=== PATIENT | male | born 1975 | race Caucasian/White ===

== ENCOUNTER 2025-04-08 14:45 | Outpatient (AMB) | payer OTHER, SELFPAY ==
--- NOTE | 2025-04-08 14:50 | A.OFFPC_ITS ---
Vital Signs 04/08/25 14:54 Height 5 ft 6.73 in Weight 219 lb 8 oz BMI 34.7 BP 116/74 Blood Pressure Location Lt brachial Position Sitting Respiration 14 Pulse 85 Pulse Source Pulse Oximeter Temp 98.2 F Temp Source Oral Pulse Oximetry (%) 97 Oxygen Delivery Method Room Air Intake Visit Reasons: CPE? 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 JOVITA on CPAP presenting to establish care/CPE. Transfer from [facility]-records not yet received On toprol 25mg daily, plavix, lipitor, ASA cardiac cath 09/2024-nstemi with pci. Follows with [facility] Dr Beck. 01/07 echo with LVEF 45-50%. Denies chest pain. JOVITA-not following with sleep medicine. compliant with CPAP Allergies-on asad and flonase Colon cancer screening- ROS CONSTITUTIONAL: Denies weight loss, fever and chills. HEENT: Denies changes in vision and hearing. RESPIRATORY: Denies SOB and cough. CV: Denies palpitations and CP GI: Denies abdominal pain, nausea, vomiting and diarrhea. : Denies dysuria and urinary frequency. MSK: Denies new myalgia and joint pain. SKIN: Denies rash and pruritus. NEUROLOGICAL: Denies headache PSYCHIATRIC: Denies recent changes in mood. PHYSICAL EXAM: GENERAL: Alert and oriented x 3. NAD EYES: EOMI. Anicteric. HENT: Moist mucous membranes. No scleral icterus. No cervical lymphadenopathy. LUNGS: Clear to auscultation bilaterally. CARDIOVASCULAR: Regular rate and rhythm. No murmur. No JVD. ABDOMEN: Soft, non-tender +bs EXTREMITIES: No edema. Non-tender. SKIN: No rashes or lesions. Warm. NEUROLOGIC: No focal neurological deficits. CN II-XII grossly intact PSYCHIATRIC: Cooperative. Appropriate mood and affect [facility] Surgical History H/O cardiac catheterization Social History Housing: House Patient Tobacco Use Status: Former Tobacco user Years Smoked: 4 e-Cigarette/Vaping Use: Former Use (quit 10/14/2024) Second Hand Smoke Exposure: No service: No Current occupational status: employed Current occupation: [employer] Current occupational exposures/hazards: No Cognitive needs: No Hearing needs: No Vision needs: No Questionnaire PHQ-9 Over the last 2 weeks, how often have you been bothered by any of the following problems? 1. Little interest or pleasure in doing things: not at all 2. Feeling down, depressed, or hopeless: not at all 3. Trouble falling or staying asleep, or sleeping too much: not at all 4. Feeling tired or having little energy: several days 5. Poor appetite or overeating: several days 6. Feeling bad about yourself - or that you are a failure or have let yourself or your family down: not at all 7. Trouble concentrating on things, such as reading the newspaper or watching television: not at all 8. Moving or speaking so slowly that other people could have noticed. Or the opposite - being so fidgety or restless that you have been moving around a lot more than usual: not at all 9. Thoughts that you would be better off or of hurting yourself in some way: not at all Total score: 2 Depression Screening Interpretation: Negative Depression Screening Done: Yes 81814 - PHQ-9 Billing: Yes Source: Developed by Drs. Mg Grady, Kavitha Huertas, Abebe Cervnates and colleagues, with an educational arias from [employer]. Thrive Questionnaire I am a: Patient What is your living situation today?: I have a steady place to live Within the past 12 months, did the food you bought not last and you didn't have the money to get more?: Never true Within the past 12 months, did you worry whether your food would run out before you got money to buy more?: Never true Do you have trouble paying for medicines?: No Do you have trouble getting transportation to medical appointments?: No Do you have trouble paying your heating and electricity bill?: No Do you have trouble taking care of your child, family member or friend?: No Do you have trouble with day-to-day activities such as bathing, preparing meals, shopping, managing finances, etc.?: No Are you currently unemployed and looking for a job?: No Are you interested in more education?: No Please select the resources that you would like help with: None Currently or been in a relationship where the following occur: No concerns reported THRIVE Score: 0 AUDIT C Alcohol Use Questionnaire (AUDIT-C) 1. How often do you have a drink containing alcohol?: Monthly or less 2. How many drinks containing alcohol do you have on a typical day when you are drinking?: 3 or 4 3. How often do you have six or more drinks on one occasion?: Less than monthly Total Score: 3 ANEESH-7 AMB Questionnaire ANEESH-7 Feeling nervous, anxious, or on edge: 0 = Not at all Not being able to stop or control worryin = Not at all Worrying too much about different things: 0 = Not at all Trouble relaxin = Not at all Being so restless that it is hard to sit still: 0 = Not at all Becoming easily annoyed or irritable: 0 = Not at all Feeling afraid as if something awful might happen: 0 = Not at all Total ANEESH-7 score (0-4 normal; 5-9 mild; 10-14 moderate; 15-21 severe): 0 Source: Developed by Drs. Mg Grady, Kavitha Huertas, Abebe Cervantes and colleagues, with an educational arias from [employer]. Physical exam (Primary Care) Vital Signs: Last Vital Signs Temp 98.2 F 04/08/25 14:54 Pulse 85 04/08/25 14:54 Resp 14 04/08/25 14:54 BP 116/74 04/08/25 14:54 Pulse Ox 97 04/08/25 14:54 Oxygen Delivery Method Room Air 04/08/25 14:54 BMI result Body Mass Index 34.7 Tobacco/Smoking Status: Tobacco use Status Tobacco use date assessed 04/08/25 04/08/25 15:00 Patient Tobacco Use Status Former Tobacco user 04/08/25 15:00 e-Cigarette/Vaping Use Former Use (quit 10/14/2024) 04/08/25 15:00 PHQ-9: PHQ-9 Score PHQ-9: Total score 2 04/08/25 15:00 Depression Screening Interpretation: Negative Currently or been in a relationship where the following occur: No concerns reported Coding Level of Care Code New Pt Prev Care 40-64y(12131) Diagnoses Physical exam Z00.00 Obesity (BMI 30.0-34.9) E66.811 JOVITA (obstructive sleep apnea) G47.33 Coronary artery disease involving [place] coronary artery of [place] heart without angina pectoris I25.10 Coronary Disease-Associated Artery/Lesion type: [place] artery [place] vs. transplanted heart: [place] heart Associated angina: without angina Additional Codes PHQ-9 - 38154 - PHQ-9 Billing: Yes ([id number]) Assessment & Plan Assessment & Plan (1) Physical exam: Code(s): Z00.00 - Encounter for general adult medical examination without abnormal findings (2) Obesity (BMI 30.0-34.9): Code(s): E66.811 - Obesity, class 1 Category: Medical (3) JOVITA (obstructive sleep apnea): Code(s): G47.33 - Obstructive sleep apnea (adult) (pediatric) Category: Medical (4) CAD (coronary artery disease): Code(s): I25.10 - Atherosclerotic heart disease of [place] coronary artery without angina pectoris Category: Medical Qualifiers: Coronary Disease-Associated Artery/Lesion type: [place] artery [place] vs. transplanted heart: [place] heart Associated angina: without angina Qualified Code(s): I25.10 - Atherosclerotic heart disease of [place] coronary artery without angina pectoris Plan 50 year old male to establish care Past medical, surgical, social reviewed Preventive measures for age discussed CAD-continue cardiology follow up Obesity/JOVITA/CAD-should be on GLP which is ordered. Check labs Orders: Orders Comprehensive Met. Panel 04/08/25 E78.5 - Hyperlipidemia, unspecified, G47.33 - Obstructive sleep apnea (adult) (pediatric), I25.10 - Atherosclerotic heart disease of [place] coronary artery without angina pectoris, I25.5 - Ischemic cardiomyopathy Lipid Panel 04/08/25 E78.5 - Hyperlipidemia, unspecified, G47.33 - Obstructive sleep apnea (adult) (pediatric), I25.10 - Atherosclerotic heart disease of [place] coronary artery without angina pectoris, I25.5 - Ischemic cardiomyopathy TSH reflex Free T4 04/08/25 E78.5 - Hyperlipidemia, unspecified, G47.33 - Obstructive sleep apnea (adult) (pediatric), I25.10 - Atherosclerotic heart disease of [place] coronary artery without angina pectoris, I25.5 - Ischemic cardiomyopathy Complete Blood Count Auto Diff 04/08/25 E78.5 - Hyperlipidemia, unspecified, G47.33 - Obstructive sleep apnea (adult) (pediatric), I25.10 - Atherosclerotic heart disease of [place] coronary artery without angina pectoris, I25.5 - Ischemic cardiomyopathy Hemoglobin A1c 04/08/25 E78.5 - Hyperlipidemia, unspecified, G47.33 - Obstructive sleep apnea (adult) (pediatric), I25.10 - Atherosclerotic heart disease of [place] coronary artery without angina pectoris, I25.5 - Ischemic cardiomyopathy Referrals Sleep Medicine Referral G47.33 - Obstructive sleep apnea (adult) (pediatric) Medications: New Zepbound (tirzepatide (weight loss)) 5 mg (0.5 mL) subcut QWEEK 2 mL 1RF NS E66.811 - Obesity, class 1, G47.33 - Obstructive sleep apnea (adult) (pediatric)
[2025-04-08 14:54] VITALS: BP 116/74; PULSE 85; RESP 14; TEMP 36.8; O2SAT 97; BMI 34.7
== END 2025-04-08 15:17 | disposition home or self-care (01) ==
LOC: HO.HMCFM 14:46
PROVIDERS: PCP Internal Medicine; Visit Provider Internal Medicine
DX: Z00.00 Encounter for general adult medical examination without abnormal findings (principal); E66.811 Obesity, class 1; Z68.34 Body mass index [BMI] 34.0-34.9, adult; G47.33 Obstructive sleep apnea (adult) (pediatric); I25.10 Atherosclerotic heart disease of native coronary artery without angina pectoris

== ENCOUNTER 2025-04-08 14:45 | Outpatient (REF) | payer OTHER, SELFPAY ==
[2025-04-08 18:06] LABS: MANUAL DIFF FLAG NO
[2025-04-08 18:23] LABS: Hematocrit 43.1 % (42.0-52.0); Hemoglobin 14.6 g/dl (14.0-18.0); Imm Gran Abs Auto 0.01 X10*3/uL (0.00-0.03); Imm Gran Pct Auto 0.1 % (0.0-0.4); Lymphocytes Absolute Auto 1.6 X10*3/uL (1.2-4.9); Mean Corpuscular HGB Conc 33.9 g/dl (31.0-36.0); Mean Corpuscular Hemoglobin 30.1 pg (27.0-33.0); Mean Corpuscular Volume 88.9 fL (80.0-98.0); NRBC Abs Auto 0.000 X10*3/uL (0.0-0.012); NRBC Pct Auto 0.0 /100WBC (0.0-0.2); Platelet Count 222 X10*3/uL (160-400); Red Blood Count 4.85 X10*6/uL (4.60-5.80); White Blood Count 7.3 X10*3/uL (4.8-10.8)
[2025-04-08 18:40] LABS: Alanine Aminotransferase 121 U/L (0-40); Albumin Level 4.7 g/dL (3.5-5.0); Alkaline Phosphatase 62 U/L (39-117); Anion Gap 10 (12-20); Aspartate Amino Transferase 78 U/L (5-37); Blood Urea Nitrogen 18 mg/dL (9-16); Calcium 9.4 mg/dL (8.4-10.2); Carbon Dioxide 28 mmol/L (22-29); Chloride 108 mmol/L (96-108); Cholesterol 133 mg/dL (<200); Estimated Glomerular Filt Rate > 60; HDL Cholesterol 41 mg/dL (>40); Potassium 4.4 mmol/L (3.3-5.1); Sodium 142 mmol/L (135-145); Total Protein 7.7 g/dL (6.5-8.0); Triglycerides 104 mg/dL (<150)
--- OUTSIDE RECORDS SUMMARY | 2025-04-08 22:20 | XMS_ITS | Clinical Summary ---
Author Organization [facility] [address] Address [address] [place] [address] Phone Care Team Providers Care Court Recorder Name Role Phone Lety Mccann MD Primary Care Provider Allergies Active Allergy Reactions Criticality Noted Date Comments Other Low 10/25/2012 Seasonal Allergies Other Reaction(s): Runny Nose/Rhinitis Medications loratadine (CLARITIN) 10 mg tablet Take 1 tablet (10 mg total) by mouth 1 (one) time each day. 9 Active fluticasone propionate (FLONASE) 50 mcg/actuation nasal spray Administer 2 sprays into affected nostril(s) 1 (one) time each day. 8 Active omeprazole OTC (PriLOSEC OTC) 20 mg EC tabletIndicatio ns:Seasonal allergies Take 1 tablet (20 mg total) by mouth 1 (one) time each day. Do not crush, chew, or split. Active clopidogreL (PLAVIX) 75 mg tablet Take 1 tablet (75 mg total) by mouth 1 (one) time each day. 5 Active atorvastatin (LIPITOR) 80 mg tablet Take 1 tablet (80 mg total) by mouth. at bedtime 5 Active metoprolol succinate (TOPROL-XL) 25 mg 24 hr tablet Take 0.5 tablets (12.5 mg total) by mouth 1 (one) time each day. 5 Active aspirin 81 mg EC tablet Take 1 tablet (81 mg total) by mouth 1 (one) time each day. Active Active Problems Problem Noted Date Diagnosed Date Mass of right hand 11/17/2023 Foreign body reaction 08/30/2023 Seasonal allergies 10/25/2012 JOVITA on CPAP 07/01/2011 Heartburn 09/03/2010 Immunizations Immunization Administration Dates Next Due Influenza Quadrivalent, 0.5m l, preservative free (Fluarix; FluLaval; Fluzone) ages 6mo and older (Afluria) 3yo and older 02/14/2020,02/23/2019 Influenza trivalent, 0.5mL, preservative free (Fluarix; FluLaval; Fluzone) ages 6mo and older (Afluria) 3 years and older 02/23/2019,01/18/2016,06/30/2011 Influenza trivalent, with pr eservative (Fluzone; Afluria) 6mo and older 04/20/2021,06/30/2011 Tdap Tetanus diptheria acell ular pertussis (Boostrix; Adacel) 7yo and older 07/25/2023,06/14/2015,06/30/2011 Surgical History Surgery Date Site/Laterality Comments OTHER SURGICAL HISTORY PROCEDURE: [place] CARTILAGE GRAFT NASAL SEPTUM Medical History Medical History Date Comments Heartburn 09/03/2010 DX:Heartburn Seasonal allergies 10/25/2012 DX:Seasonal a llergies Family History Medical History Relation Name Comments Diabetes Father Glaucoma Father Hyperlipidemia Father Hypertension Father Prostate cancer Father Sleep apnea Father Hypertension Mother No Known Problems Son 1 No Known Problems Son 2 Relation Name Status Comments Brother Alive Identical twin Father Alive Maternal Grandfather Maternal Grandmother Mother Alive Paternal Grandfather Paternal Grandmother Sister Alive Son 1 Alive Son 2 Alive Social History Tobacco Use Types Packs/Day Years Used Date Smoking Tobacco: Former Cigarettes 0.2 Q uit: 10/29/2010 Smokeless Tobacco: Current Tobacco Cessation:Counseling Given: Not Answered Comments:vapes Alcohol Use Standard Drinks/Week Comments Yes 0 (1 standard drink = 0.6 oz pur e alcohol) Sex and Gender Information Value Date Recorded Sex Assigned at Not on file Legal Sex Male 2:35 PM EST Gender Identity Not on file Sexual Orientation Not on file Last Filed Vital Signs Vital Sign Reading Time Taken Comments Blood Pressure 103/68 10/22/2024 10:23 AM EDT Pulse 70 10/22/2024 10:23 AM EDT Temperature 36.6 C (97.8 F) 10/22/2024 10:23 AM EDT Respiratory Rate - - Oxygen Saturation - - Inhaled Oxygen Concentration - - Weight 94.8 kg (209 lb) 10/22/2024 10:23 AM EDT Height 172.7 cm (5' 8 ) 10/22/2024 10:23 AM EDT Body Mass Index 31.78 10/22/2024 10:23 AM EDT Plan of Treatment Health Maintenance Due Date Last Done Comments Hepatitis B Vaccines (1 of 3 - 19+ 3-dose series) 01/15/1996 HIV Screening 03/30/2022 Hepatitis C Screening 03/30/2022 Social Influencers of Health Screening 03/30/2022 Depression Screening 05/01/2024 COVID-19 Vaccine ( season) 2024 04/20/2021, 09/30/2020, 08/28/2020 Influenza Vaccine (#1) 2024 , 02/14/2020, 02/23/2019, Additional history exists Cholesterol Screening (Lipid Panel) 06/26/2028 06/26/2023 Colorectal Cancer Screening: Colonoscopy 10/01/2028 10/02/2023 DTaP,Tdap,and Td Vaccines (4 - Td or Tdap) 07/24/2033 07/25/2023, 06/14/2015, 06/30/2011 RSV Immunization Adult Patients (1 - 1-dose 75+ series) 01/15/2052 HIB Vaccines Aged Out No longer eligi ble based on patient's age to complete this topic HPV Vaccines Aged Out No longer eligi ble based on patient's age to complete this topic Hepatitis A Vaccines Aged Out No long er eligible based on patient's age to complete this topic IPV Vaccines Aged Out No longer eligi ble based on patient's age to complete this topic MMR Vaccines Aged Out No longer eligi ble based on patient's age to complete this topic Meningococcal ACWY Vaccine Aged Out N o longer eligible based on patient's age to complete this topic Meningococcal B Vaccine Aged Out No l onger eligible based on patient's age to complete this topic Pneumococcal Vaccine: Pediatrics (0 to 5 Years) and At-Risk Patients (6 to 49 Years) Aged Out No longer eligible based on patient's age to complete this topic RSV Immunization Patients Under 20 months Aged Out No longer eligible based on patient's age to complete this topic Varicella Vaccines Aged Out No longer eligible based on patient's age to complete this topic Procedures Procedure Name Priority Date/Time Associated Diagnosis Comments COLONOSCOPY Routine 10/02/2023 LIPID PANEL Routine 06/26/2023 from Last 3 Months or Most Recently Relevant to Health Maintenance Results * Hm Colonoscopy (10/02/2023) Colonoscopy No Interpretation , Abstracted Anatomical Region Laterality Modality Other Historical Provider MD HEALTH MAINTENANCE Final Result * (ABNORMAL) Lipid panel (06/26/2023) LDL/HDL Ratio 4 0 - 4 Triglycerides 168(A) 0 - 150 mg/dL Cholesterol 237(A) 0 - 200 mg/dL HDL 56 >=40 mg/dL LDL Cholesterol 148(A) 0 - 100 mg/dL Blood Venous blood specimen / Unknown Historical Provider LAB BLOOD ORDERABLES Bharati l Result from Last 3 Months or Most Recently Relevant to Health Maintenance Insurance [facility] [address] [place] [address] Rec[address] Relationship Specialty Start Date End Date Lety Mccann MD [address] [facility] [address] [place] [address] PCP - General Internal Medicine 02/22/22
== END 2025-04-08 14:46 | disposition home or self-care (01) ==
LOC: HO.WFDLDS 14:45
PROVIDERS: Visit Provider Internal Medicine
DX: Z00.00 Encounter for general adult medical examination without abnormal findings (principal); I25.5 Ischemic cardiomyopathy; I25.10 Atherosclerotic heart disease of native coronary artery without angina pectoris; E78.5 Hyperlipidemia, unspecified; G47.33 Obstructive sleep apnea (adult) (pediatric); E66.811 Obesity, class 1; Z68.34 Body mass index [BMI] 34.0-34.9, adult
CPT/HCPCS: 36415; 80053; 80061; 83036; 84443; 85025; 96127